=== PATIENT | female | born 1980 | race Caucasian/White ===

== ENCOUNTER 2018-04-25 11:50 | Emergency (ER) | payer OTHER ==
[~2018-04-25] VITALS: Ht 172.7 cm; Wt 78.0 kg
[2018-04-25 11:55] VITALS: BP 146/99
--- NOTE | 2018-04-25 12:06 | NUR ---
38Y/F BIB FAMILY FOR ABDOMINAL SUTURE REMOVAL; HAD GALBLADDER SURGERY LAST 03/29/2018 FROM ANOTHER FACILITY. PT IS AAOX4, VSS AT THIS TIME, BED DOWN, BEDRAIL UP X 1, ER MD AWARE AND NOTIFIED OF PT STATUS. HX; CHOLECYSTECTOMY, ULCERS RX; PROTONIX --
--- NOTE | 2018-04-25 12:06 | NUR ---
Patient being evaluated by physician at bedside.
--- NOTE | 2018-04-25 12:40 | NUR ---
Patient being evaluated by physician at bedside.
[2018-04-25 12:44] VITALS: BP 134/84
--- NOTE | 2018-04-25 12:44 | NUR ---
Patient discharged with v/s stable. Written and verbal after care instructions given and explained. Patient verbalized understanding. Ambulatory with steady gait. All questions addressed prior to discharge. Advised to follow up with PMD.
== END 2018-04-25 12:44 | disposition home or self-care (01) ==
LOC: MED 11:50
DX: Z48.01 Encounter for change or removal of surgical wound dressing (principal)
CPT/HCPCS: 99283

== ENCOUNTER 2018-07-05 09:52 | Emergency (ER) | payer OTHER ==
[~2018-07-05] VITALS: Ht 172.7 cm; Wt 74.8 kg
[2018-07-05 10:32] VITALS: BP 117/77
--- NOTE | 2018-07-05 12:20 | NUR ---
PATIENT AMBULATED TO ER BED 11
--- NOTE | 2018-07-05 12:24 | NUR ---
C/O MID LOWER BACK PAIN RADIATING TO LEFT HIP, NAUSEA, HEADACHE X 2 DAYS. DENIES TRAUMA OR DYSUREA. STATES THAT THE PAIN IS PREVENTING HER FROM SLEEPING OR PREFORMING ADLS. HX: STOMACH ULCER,DISE HERNIATION, GALL BLADDER REMOVE LAST YEAR, TUBALIZATION MED: NEXIUM, PROTONIX
--- NOTE | 2018-07-05 13:52 | NUR ---
PATIENT LEFT WITHOUT BEING SEEN AT THIS TIME.
[2018-07-05 16:41] LABS: BARBITURATE, URINE NEGATIVE ng/ml (NEG <=200); BENZODIAZEPINE, URINE NEGATIVE ng/mL (NEG <=200); CANNABINOID, URINE NEGATIVE ng/mL (NEG <=50); COCAINE, URINE NEGATIVE ng/mL (NEG <=300); OPIATE, URINE NEGATIVE ng/mL (NEG <=2000); PHENCYCLIDINE SCREEN,URINE NEGATIVE ng/mL (NEG <=25)
[2018-07-05 17:39] LABS: APPEARANCE,URINE CLEAR (CLEAR); BILIRUBIN,URINE NEGATIVE (NEGATIVE); BLOOD, URINE TRACE-I (NEGATIVE); COLOR,URINE YELLOW (YELLOW); LEUKOCYTE ESTERASE ,URINE NEGATIVE (NEGATIVE); NITRITE, URINE NEGATIVE (NEGATIVE); PH,URINE 6.5 (5.0-9.0); UGLUCOSE NEGATIVE (NEGATIVE)
[2018-07-05 17:51] LABS: RBC,URINE 0-5 (RARE) /HPF (0-5); WBC,URINE 0-5 (RARE) /HPF (0-5)
== END 2018-07-05 13:52 | disposition left against medical advice (07) ==
LOC: MED 09:52
DX: M54.9 Dorsalgia, unspecified (principal); Z53.21 Procedure and treatment not carried out due to patient leaving prior to being seen by health care provider; Z79.899 Other long term (current) drug therapy
CPT/HCPCS: 80305; 81001; 81025; 87086; 99281